=== PATIENT | female | born 1985 | race Caucasian/White ===

== ENCOUNTER 2017-05-15 10:40 | Emergency (ER) | payer SELFPAY ==
[2017-05-15] MEDS ORDERED: DUONEB *Not for PRN Use IH ONE (13:29)
--- NOTE | 2017-05-15 13:42 | Emergency Department Report ---
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 PT states she has been out of her medication x 1 week. PT states she is wheezing and she has been coughing. PT states she coughs more after she smokes. PT also complains of breast tenderness x 5 days. PT states she had a recent negative home test. MD Complaint: asthma -: Gradual Location: chest (marissa breast ) Severity scale (0 -10): 8 Quality: other (tenderness ) Consistency: constant Improves with: none Worsens with: other (palpation and smoking ) Associated Symptoms: cough, other (wheezing ). denies: chest pain, fever/chills , shortness of breath Treatments Prior to Arrival: none - Related Data Previous Rx's Medication Instructions Recorded Last Taken Type Albuterol Sulfate [Ventolin HFA] 2 puff IH Q4H PRN #1 [email or web address] 05/15/17 Unknown Rx Allergies Allergy/AdvReac Type Severity Reaction Status Date / Time No Known Allergies Allergy Unverified 05/15/17 10:44 ED Review of Systems ROS: Stated complaint: BREAST PAIN Other details as noted in HPI Comment: All other systems reviewed and negative Constitutional: denies: fever, malaise Respiratory: cough, wheezing. denies: shortness of breath, SOB with exertion Cardiovascular: denies: chest pain Gastrointestinal: denies: abdominal pain Genitourinary: denies: abnormal menses (lmp 04-20-17) Skin: denies: rash, change in color ED Past Medical Hx - Past Medical History Previous Medical History?: Yes Hx Asthma: Yes - Surgical History Past Surgical History?: Yes Additional Surgical History: possible tubaligation. pelvic surgery 14 years ago - Social History Smoking Status: Former Smoker Substance Use Type: None - Medications Home Medications: Home Medications Medication Instructions Recorded Confirmed Last Taken Type Albuterol Sulfate [Ventolin HFA] 2 puff IH Q4H PRN #1 [email or web address] 05/15/17 Unknown Rx ED Physical Exam - General Limitations: No Limitations General appearance: alert, in no apparent distress - Head Head exam: Present: atraumatic, normocephalic, normal inspection - Eye Eye exam: Present: normal appearance, PERRL, EOMI. Absent: conjunctival injection - ENT ENT exam: Present: normal exam, mucous membranes moist, normal external ear exam - Neck Neck exam: Present: normal inspection, full ROM. Absent: tenderness, lymphadenopathy - Respiratory Respiratory exam: Present: wheezes, chest wall tenderness (marissa breast tenderness. no abscesses, no rash, no dimpling noted ). Absent: normal lung sounds bilaterally, respiratory distress, rales, rhonchi, stridor - Expanded Respiratory Exam Expanded Location: Wheezes: Right, Left, Upper, Lower - Cardiovascular Cardiovascular Exam: Present: regular rate, normal rhythm, normal heart sounds - GI/Abdominal GI/Abdominal exam: Present: soft. Absent: tenderness - Extremities Exam Extremities exam: Present: normal inspection, full ROM - Back Exam Back exam: Present: normal inspection, full ROM. Absent: tenderness, CVA tenderness (R), CVA tenderness (L) - Neurological Exam Neurological exam: Present: alert, oriented X3, normal gait - Psychiatric Psychiatric exam: Present: normal affect, normal mood - Skin Skin exam: Present: warm, dry, intact, normal color ED Course Vital Signs 05/15/17 05/15/17 05/15/17 10:44 14:18 14:37 Temperature 98.5 F Pulse Rate 73 Pulse Rate [ 72 Anterior Right Throughout] Pulse Rate [ 85 Posterior Bilateral Throughout] Respiratory 17 Rate Respiratory 20 Rate [Anterior Right Throughout] Respiratory 20 Rate [Posterior Bilateral Throughout] Blood Pressure 132/77 Blood Pressure [Right] O2 Sat by Pulse 100 Oximetry 05/15/17 16:53 Temperature Pulse Rate 77 Pulse Rate [ Anterior Right Throughout] Pulse Rate [ Posterior Bilateral Throughout] Respiratory 16 Rate Respiratory Rate [Anterior Right Throughout] Respiratory Rate [Posterior Bilateral Throughout] Blood Pressure Blood Pressure 128/76 [Right] O2 Sat by Pulse 100 Oximetry - Reevaluation(s) Reevaluation #1: 05/15/17 13:44 PT aware of plan of care. PT has no questions at this time. Reevaluation #2: 05/15/17 16:53 PT states she is feeling better. PT aware of lab results. Pt's lungs CTA at this time. PT is aware she will need to follow up with PCP for the management of her asthma. PT verbalizes understanding. - Pulse Oximetry Interpretation Digit-Finger Initial Pulse Oximetry Readin Actions Taken: none ED Medical Decision Making - Differential Diagnosis asthma, , abscess Critical Care Time: No Critical care attestation.: If time is entered above; I have spent that time in minutes in the direct care of this critically ill patient, excluding procedure time. ED Disposition Clinical Impression: Asthma exacerbation, Breast tenderness in female Disposition: TO HOME OR SELFCARE Is pt being admited?: No Does the pt Need Aspirin: No Condition: Stable Instructions: Breast Self-exam (ED), Asthma (ED) Additional Instructions: Follow up with PCP in 3-5 days Follow up with OB/ [facility] due to your breast pain. Return to ED if worsening or concerns Prescriptions: Albuterol Sulfate [Ventolin HFA] 2 puff IH Q4H PRN #1 [email or web address] PRN Reason: Shortness Of Breath Referrals: PRIMARY CAREMD [Primary Care Provider] - 3-5 Days CROW GUILLERMO MD [Staff Physician] - 3-5 Days BRETT HOFFMAN MD [Staff Physician] - 3-5 Days [facility] [Outside] - 3-5 Days [facility] [Outside] - 3-5 Days Time of Disposition: 16:56
[2017-05-15 16:54] VITALS: BP 128/76
== END 2017-05-15 17:00 | disposition home or self-care (01) ==
LOC: ED 10:40
DX: J45.901 Unspecified asthma with (acute) exacerbation (principal); N64.4 Mastodynia; Z87.891 Personal history of nicotine dependence
CPT/HCPCS: 81025; 94640